=== PATIENT | female | born 1990 | race Caucasian/White ===

== ENCOUNTER → 2020-06-16 | Outpatient (CLI) | payer OTHER ==
[~2020-06-16] MED LIST: CALC500C16 PO; COLLCAP PO; CVS1CAP2 PO; PREN200C PO
== END ==
LOC: M LAB 13:33
PROVIDERS: ATTEND Obstetrics & Gynecology
DX: Z36.89 Encounter for other specified antenatal screening (principal); Z3A.37 37 weeks gestation of pregnancy

== ENCOUNTER 2020-06-28 05:08 | Inpatient (IN) | payer OTHER ==
[2020-06-28] VITALS (8 sets, daily range): BP systolic 115–122; BP diastolic 58–70
[~2020-06-28] VITALS: Ht 165.1 cm; Wt 86.0 kg
[2020-06-28 05:52] LABS: HEMATOCRIT 35.7 % (36.0-47.0); HEMOGLOBIN 11.9 g/dl (12.0-15.5); MEAN CORPUSCULAR HEMOGLOBIN 29.1 pg (27.0-33.0); MEAN CORPUSCULAR HGB CONC 33.3 g/dl (32.0-36.5); MEAN CORPUSCULAR VOLUME 87.3 fl (80.0-96.0); PLATELET COUNT, AUTOMATED 211 10^3/uL (150-450); RED BLOOD COUNT 4.09 10^6/uL (4.00-5.40); WHITE BLOOD COUNT 6.7 10^3/uL (4.0-10.0)
[2020-06-28] MEDS ORDERED: MORPHINE PRES-FREE INJ 10 MG/10 ML VIAL (J2274) As Ordered ONE (06:57)
[2020-06-28] MEDS ORDERED: OXYTOCIN INJ 10 UNITS/ML VIAL (J2590) As Ordered ONE ×2 (06:58→06:59)
[2020-06-28] MEDS ORDERED: OXYTOCIN 30 UNITS IN 0.9% NaCl 500ML IV BAG (J2590) As Ordered ONE ×2 (06:58→10:39)
[2020-06-28] MEDS ORDERED: KETOROLAC 60MG 2ML VIAL As Ordered ONE (06:59)
[2020-06-28] MEDS ORDERED: ePHEDrine SULFATE 25 MG/5 ML(5MG/ML) SYRINGE As Ordered ONE (06:59)
[2020-06-28] MEDS ORDERED: dexameTHASONE 4 MG/ML 1ML VIAL (J1100 PER 1MG) As Ordered ONE (06:59)
[2020-06-28] MEDS ORDERED: ONDANSETRON 4MG/2ML VIAL As Ordered ONE (06:59)
[2020-06-28] MEDS ORDERED: PHENYLephrine HCL 500 MCG/5 ML (100MCG/ML) SYRINGE (J2370) As Ordered ONE (06:59)
[2020-06-28] MEDS ORDERED: diphenhydrAMINE 50MG/ML VIAL (J1200) IV PRN (08:09)
[2020-06-28] MEDS ORDERED: METOCLOPRAMIDE INJ 10MG/2ML VIAL (J2765 PER 1) IV PRN ×2 (08:09→09:45)
[2020-06-28] MEDS ORDERED: NALOXONE INJ 0.4MG/1ML VIAL (J2310 PER 1MG) IV PRN ×2 (08:09)
[2020-06-28] MEDS ORDERED: NALBUPHINE HCL 10 MG/ML AMP (J2300) IV PRN (08:09)
[2020-06-28] MEDS ORDERED: ONDANSETRON 4MG/2ML VIAL IV PRN ×2 (08:09→09:45)
[2020-06-28] MEDS ORDERED: ACETAMINOPHEN 1000MG 100ML IV BTL (OFIRMEV) (J0131 PER 10MG) As Ordered ONE (09:01)
[2020-06-28] MEDS ORDERED: HYDROMORPHONE HCL 0.5 MG/ 0.5 ML SYRINGE (J1170 PER 1) IV PRN (09:45)
[2020-06-28] MEDS ORDERED: fentaNYL 100 MCG/2 ML INJECTION (J3010) IV PRN (09:45)
[2020-06-28] MEDS ORDERED: oxyCODONE 5MG TAB PO PRN (09:45)
[2020-06-28] MEDS ORDERED: LR 1,000 ML IV SCH (09:45)
[2020-06-29 02:00] VITALS: BP 103/58
[2020-06-29 06:00] VITALS: BP 115/58
[2020-06-29 07:21] LABS: HEMATOCRIT 28.1 % (36.0-47.0); MEAN CORPUSCULAR HEMOGLOBIN 29.8 pg (27.0-33.0); MEAN CORPUSCULAR HGB CONC 33.8 g/dl (32.0-36.5); MEAN CORPUSCULAR VOLUME 88.1 fl (80.0-96.0); PLATELET COUNT, AUTOMATED 173 10^3/uL (150-450); RED BLOOD COUNT 3.19 10^6/uL (4.00-5.40); WHITE BLOOD COUNT 10.9 10^3/uL (4.0-10.0)
--- NOTE | 2020-06-29 07:34 | IPNPDOC ---
Progress Note Date of Service: Jun 29, 2020 Day#: 1 Progress Note SUBJECT: Doing well without complaints. Ambulating, voiding and pain is well-c ontrolled. Reports minimal lochia. OBJECTIVE: VITAL SIGNS: Within normal limits, afebrile. Alert and oriented times three. Abdomen: Fundus firm at U-2. Incision: dressed Ext: neg calf tenderness. ASSESSMENT: /postoperative day #1 status post delivery. Recovering in stable condition. PLAN: 1. Continue routine /postoperative care 2. Discharge plans for tomorrow VS, I&O, 24H, Fishbone Vital Signs/I&O Vital Signs Date Time Temp Pulse Resp B/P (MAP) Pulse Ox O2 Delivery O2 Flow Rate FiO2 06/29/20 06:00 97.9 69 17 115/58 (77) 100 Room Air I&O- Last 24 Hours up to 6 AM 06/29/20 06:00 Intake Total 1975 ml Output Total 2200 ml Balance -225 ml Laboratory Data CBC/BMP ELMIRA REDDY MD. Jun 29, 2020 07:34
[2020-06-29 07:46] LABS: HEMOGLOBIN 9.5 g/dl (12.0-15.5)
[2020-06-29 10:00] VITALS: BP 105/55
[2020-06-29 14:00] VITALS: BP 119/61
[2020-06-29 18:00] VITALS: BP 139/75
[2020-06-29 22:00] VITALS: BP 124/63
[2020-06-30 02:00] VITALS: BP 123/72
[2020-06-30 05:39] VITALS: BP 121/70
--- NOTE | 2020-06-30 12:59 | IPNPDOC ---
Progress Note Date of Service: Jun 30, 2020 Day#: 2 Progress Note SUBJECT: Doing well without complaints. Ambulating, voiding and pain is well-c ontrolled. Reports minimal lochia. OBJECTIVE: VITAL SIGNS: Within normal limits, afebrile. Alert and oriented times three. Abdomen: Fundus firm at U-2. Incision: c/d/i with dressing removed Ext: neg calf tenderness. ASSESSMENT: /postoperative day #2 status post delivery. Recovering in stable condition. PLAN: 1. Discharge to home today. 2. Percocet and Motrin for pain. 3. Encourage breast feeding and ambulation. 4. Incision check in 2 weeks. 5. Discussed return precautions at length. VS, I&O, 24H, Fishbone Vital Signs/I&O Vital Signs Date Time Temp Pulse Resp B/P (MAP) Pulse Ox O2 Delivery O2 Flow Rate FiO2 06/30/20 11:51 18 Room Air 06/30/20 05:39 98.0 63 121/70 (87) 97 BLANCA THOMAS DO Jun 30, 2020 12:59
--- NOTE | 2020-07-04 19:08 | ROOPDOC ---
[facility] Report Of Operation Report of Operation DATE OF PROCEDURE: 06/28/20 PREOPERATIVE DIAGNOSIS: 1. History of section 2. Anti-C antibody 3. Undesired fertility 4. 39 weeks gestation POSTOPERATIVE DIAGNOSIS: 1. History of section 2. Anti-C antibody 3. Undesired fertility 4. 39 weeks gestation FINDINGS: Uterus with 0.5cm posterior fundal fibroid otherwise normal-appearing. Normal- appearing bilateral ovaries and fallopian tubes. Female infant in cephalic presentation, no nuchal cord, clear fluid on amniotomy, APGARS 8/9 weighing 3190g (7bs1oz), moderate adhesive disease of the fascia noted PROCEDURE: 1. Elective repeat low transverse section 2. Hubbard bilateral tubal ligation 3. Adhesiolysis SURGEON: Dr. Blanca Saldana D.O. BATTERY CONTAINER TESTER: Dr. Rhiannon Hammodn M.D. ANESTHESIA: Spinal SPECIMENS: Bilateral fallopian tube segments ESTIMATED BLOOD LOSS: 800ml REPLACED: 1500ml DRAINS: Urine output: 250ml COMPLICATIONS: None POSTOPERATIVE CONDITION: Stable DESCRIPTION OF PROCEDURE: The risks, benefits, indications and alternatives of the procedure were reviewed with the patient and informed consent was obtained. The patient was taken to the operating room where spinal anesthesia was found to be adequate. She was then prepped and draped in the normal, sterile fashion in the dorsal supine position with a leftward tilt. A Pfannenstiel skin incision was then made with the scalpel and carried through to the underlying layer of fascia with the bovie. The fascia was incised in the midline and the incision extended laterally with the Tracy scissors. Significant scarring of the fascial layer was encountered that was reduced using sharp dissection. The superior aspect of the fascial incision was grasped with the Alison clamps, elevated, and the underlying rectus muscles dissected off bluntly aided by scalpel. Attention was then turned to the inferior aspect of this incision, which, in a similar fashion, was grasped, tented up with the Alison clamps and the rectus muscle dissected off by both by blunt dissection and aided with Tracy scissors. Rectus muscles were then at the midline; the peritoneum identified, tented up, and entered with bluntly. The peritoneal incision was then extended horizontally/superiorly with good visualization of the bladder. The Mobius retractor was then introduced into the abdomen. The vesicouterine peritoneum was then identified and entered sharply with the scalpel and the bladder flap created digitally. Next, the lower uterine segment was incised in a transverse fashion with the scalpel. The amniotic sac was artificially ruptured, productive of clear fluid. The uterine incision was then extended manually in a superior-lateral fashion. The was found to be in cephalic presentation. Baby was delivered without difficulty through the hysterotomy site. The cord was then doubly clamped and cut after 30 seconds of delayed cord clamping. The infant was handed off to the waiting pediatricians. The placenta was then removed spontaneously with gently traction on the umbilical cord. The uterus was cleared of all clots and debris. The uterine incision was repaired with 0-monocryl in a running, locked fashion. A second layer of 0-monocryl was then used to embricate the hysterotomy site in a vertical fashion. The patients left fallopian tube was then grasped with a [place] clamp and followed out to its fimbriated end. The mesosalpinx was incised parallel to the fallopian tube in an avascular plane using Bovie cautery. Two free ties of plain catgut were passed through the defect and placed around the fallopian tube in its proximal and distal segment and tied. The tubal segment between the two sutures was then excised using Metzenbaum scissors. Approximately 2 cm of tube was excised and sent to pathology. Excellent hemostasis and telescoping of the tubal lumen was noted. An identical procedure was then performed on the right fallopian tube with a 2 cm segment excised and sent to pathology. Excellent hemostasis was noted and the tube was returned to the abdomen. The Mobius retractor was removed and the hysterotomy was again noted to be h emostatic. The fascia was reapproximated with 0-vicryl in a running/non-locking fashion. The subcutaneous tissue was reapproximated with three interrupted sutures of 3-0 vicryl. The skin was closed with 4-0 monocryl in a subcuticular fashion. The incision was then dressed and a pressure dressing applied. At the completion of the case, bimanual exam performed with good uterine tone and minimal vaginal bleeding. The patient tolerated the procedure well. Sponge, lap and needle counts were correct times three. The patient was taken to the recovery room in stable condition. BLANCA SALDANA DO Jun 28, 2020 09:27
== END 2020-06-30 13:25 | disposition home or self-care (01) | DRG 785 ==
LOC: M LDI 05:08 → EDUNIT# 09:30 → M OBS 12:00
PROC: 0UB70ZZ Excision of Bilateral Fallopian Tubes, Open Approach (ICD-10-PCS; 2020-06-28)
PROC: 10D00Z1 Extraction of Products of Conception, Low, Open Approach (ICD-10-PCS; principal; 2020-06-28 07:30)
DX: O34.211 Maternal care for low transverse scar from previous cesarean delivery (principal); Z3A.39 39 weeks gestation of pregnancy; Z37.0 Single live birth; Z30.2 Encounter for sterilization